=== PATIENT | female | born 1960 | race Two or more races ===

== ENCOUNTER 2025-04-11 10:23 | Outpatient (CLI) | payer OTHER | END 2025-04-11 10:24 | disposition home or self-care (01) | LOC: NUCLEAR 10:23 | PROVIDERS: ATTEND Internal Medicine Sports Medicine | DX: C73 Malignant neoplasm of thyroid gland (principal) ==

== ENCOUNTER 2025-04-15 12:50 | Outpatient (CLI) | payer OTHER | END 2025-04-15 12:52 | disposition home or self-care (01) | LOC: NUCLEAR 12:50 | PROVIDERS: ATTEND Internal Medicine Sports Medicine | DX: C73 Malignant neoplasm of thyroid gland (principal) ==